=== PATIENT | female | born 1955 | race Asian ===

== ENCOUNTER 2018-02-02 06:48 | Day surgery (SDC) | payer OTHER ==
[~2018-02-02] VITALS: Ht 157.5 cm; Wt 63.5 kg
[2018-02-02 07:15] VITALS: BP 133/78
[2018-02-02 12:07] VITALS: BP 137/85
== END 2018-02-02 10:30 | disposition home or self-care (01) ==
LOC: GI 06:48 → OR 07:30 → GI 08:30
PROVIDERS: Internal Medicine Gastroenterology
PROC: 0DB68ZX Excision of Stomach, Via Natural or Artificial Opening Endoscopic, Diagnostic (ICD-10-PCS; principal; 2018-02-02 08:30)
DX: R10.13 Epigastric pain (principal)
CPT/HCPCS: 43235; J1200; J1610; J2250; J2310; J3010; J3490